=== PATIENT | male | born 1960 | race Caucasian/White ===

== ENCOUNTER 2016-10-10 11:36 | Emergency (ER) | payer OTHER ==
[~2016-10-10] VITALS: Ht 182.9 cm; Wt 90.9 kg
[~2016-10-10 11:36] MED LIST: ATENOLOL50 M1 PO; CLINDAMYCIN HC300 MG PO; COLACE100 MG PO; ENDOCET 5-3251 EACH PO; ERYTHROMYCIN O3.5 GM BOTH EYES; KEFLEX500 MG PO; LISINOPRIL40 MG PO; LYRICA100 MG PO; METOPROLOL SUCC25 MG PO; MOTRIN400 MG PO; MOTRIN600 MG PO; NAPROSYN500 MG PO; NAPROXEN500 MG PO; NITROSTAT0.4 MG SL; NO HOME MEDS; OSTEO-BIFLE1 CAPSULE PO; PERCOCET 5/31 TABLET PO; PREDNISONE20 MG PO; ULTRAM50 MG PO; VALIUM5 MG PO; VIT D; ZESTRIL,PRINIVI20 MG PO; ZOFRAN4 MG PO; naproxen; soma
[2016-10-10 12:18] LABS: HEMATOCRIT 43.4 % (38.0-50.0); MCH 29.5 PG (29.0-34.0); MCHC 34.1 G/DL (30.0-36.0); MCV 86.5 FL (86-99); MEAN PLAT.VOLUME 10.2 uM^3 (9.0-12.4); PLATELET COUNT 251 K/uL (156-360); RBC DIS.WIDTH-CV 12.1 % (11.8-14.6); RBC DIS.WIDTH-SD 38.3 % (39-53); RED BLOOD COUNT 5.02 M/uL (4.00-5.50); WHITE BLOOD COUNT 20.4 K/uL (4.1-10.2)
[2016-10-10 12:33] LABS: CHLORIDE 103 mEq/L (99-109); POTASSIUM 4.2 mEq/L (3.7-5.4); SODIUM 138 mEq/L (136-147)
[2016-10-10 12:35] LABS: GLUCOSE 137 mg/dL (70-99)
[2016-10-10 12:36] LABS: ANION GAP 11 MEQ/L (2-14)
[2016-10-10 12:39] LABS: GFR ESTIMATE (CALCULATED) 48 mL/min/
[2016-10-10 12:40] LABS: UREA NITROGEN (BUN) 14 mg/dL (9-23)
[2016-10-10 13:45] LABS: TOTAL BILIRUBIN 0.9 mg/dL (0.0-1.0)
[2016-10-10 13:46] LABS: ALKALINE PHOSPHATASE 67 IU/L (3-129)
[2016-10-10 13:48] LABS: DIRECT BILIRUBIN 0.2 mg/dL (0.0-0.3)
[2016-10-10 13:49] LABS: LIPASE 19 U/L (1.0-51.0)
[2016-10-10] MEDS ORDERED: FLOMAX0.4 MG PO (15:29)
[2016-10-10] MEDS ORDERED: PERCOCET 5/31 TABLET PO (15:29)
[2016-10-10] MEDS ORDERED: ZOFRAN ODT4 MG PO (15:29)
[2016-10-10] MEDS ORDERED: CIPRO500 MG PO (15:29)
[2016-10-10 17:11] VITALS: BP 144/87
== END 2016-10-10 17:12 | disposition home or self-care (01) ==
LOC: EME 11:36
DX: N13.2 Hydronephrosis with renal and ureteral calculous obstruction (principal); Z87.442 Personal history of urinary calculi; I10 Essential (primary) hypertension
CPT/HCPCS: 74176; 80048; 80076; 81003; 83690; 85027; 99281; 99284; J0696; J1885; J2270; J2405; J7030; J7050